=== PATIENT | male | born 1960 | race African-American/Black ===

== ENCOUNTER 2019-02-01 14:05 | Inpatient (IN) | payer OTHER ==
[~2019-02-01] VITALS: Ht 182.9 cm; Wt 83.9 kg
[2019-02-01] MEDS ORDERED: METHYLPREDNISOLONE SOD SUCC 125 MG/2 ML VIAL IV STA (14:38)
[2019-02-01] MEDS ORDERED: IPRATROPIUM BROMIDE (0.02%) 0.5MG/2.5ML NEB HHN STA (14:38)
[2019-02-01] MEDS ORDERED: ALBUTEROL (0.083%) 2.5MG/3ML NEB HHN STA (14:38)
[2019-02-01] MEDS ORDERED: ASPIRIN 81MG TABLET PO ONE (14:45)
[2019-02-01] MEDS: NITROGLYCERIN 0.4MG TABLET SL SL PRN ×2 (14:50→19:23)
[2019-02-01 15:14] LABS: BASOPHILS % 0.7 % (0.0-2.0); EOSINOPHILS % 5.2 % (0.0-5.0); HEMOGLOBIN. 14.3 g/dL (14.0-18.0); MEAN CORPUSCULAR HEMOGLOBIN 29.4 pg (28.0-32.0); MEAN CORPUSCULAR VOLUME 86.7 fL (80.0-94.0); MEAN PLATELET VOLUME 9.5 fl (7.4-10.4); MONOCYTES % 7.7 % (2.0-8.0); NEUTROPHILS % 54.4 % (40.0-76.0); PLATELET 172 x1000/uL (130-400); RED BLOOD CELL COUNT 4.85 mill/uL (4.7-6.1); RED CELL DISTRIBUTION WIDTH 13.6 % (11.6-14.6)
[2019-02-01 15:19] LABS: CHLORIDE 107 mEq/L (98-107)
[2019-02-01 15:21] LABS: INR 0.9; PARTIAL THROMBOPLASTIN TIME 24.7 sec (23.4-31.0); PROTHROMBIN TIME 9.7 sec (9.6-11.0)
[2019-02-01] MEDS ORDERED: ONDANSETRON HCL 4MG/2ML INJ IV STA (16:59)
[2019-02-01] MEDS ORDERED: MORPHINE SULFATE 4 MG/ML CPJ (NOT FOR IM USE) IV STA (16:59)
[2019-02-01 21:24] VITALS: BP 122/75
[2019-02-01] MEDS ORDERED: ALBU18HF2 IH (21:29)
[2019-02-01] MEDS ORDERED: NITR0.4T49 SL (21:29)
[2019-02-01] MEDS ORDERED: LORA10CA MT (21:29)
[2019-02-01] MEDS ORDERED: BACL-141 MT (21:29)
[2019-02-01 21:33] VITALS: BP 122/75
[2019-02-01] MEDS ORDERED: IPRATROPIUM/ALBUTEROL 0.5-3(2.5)MG/3ML NEB INH PRN (22:30)
[2019-02-01] MEDS ORDERED: CLONIDINE 0.1MG TABLET PO PRN (22:30)
[2019-02-01] MEDS ORDERED: MAGNESIUM/ALUMINUM HYDROXIDE/SIMETHICONE 30ML UDC PO PRN (22:30)
[2019-02-01] MEDS ORDERED: DIPHENHYDRAMINE 50MG/ML VIAL IV PRN (22:30)
[2019-02-01] MEDS ORDERED: GUAIFENESIN 200MG/10ML SUGAR FREE UDC PO PRN (22:30)
[2019-02-01] MEDS ORDERED: NA PHOS,M-B/NA PHOS,DI-BA ENEMA 118ML PR PRN (22:30)
[2019-02-01] MEDS ORDERED: DOCUSATE SODIUM 100MG CAPSULE PO PRN (22:30)
[2019-02-01] MEDS ORDERED: ONDANSETRON HCL 4MG/2ML INJ IV PRN (22:30)
[2019-02-01] MEDS ORDERED: LORAZEPAM 2MG/ML CPJ IV PRN (22:30)
[2019-02-01] MEDS ORDERED: ACETAMINOPHEN 325MG TABLET PO PRN (22:30)
[2019-02-01] MEDS ORDERED: MORPHINE SULFATE 2 MG/ML CPJ (NOT FOR IM USE) IV PRN (22:30)
[2019-02-01] MEDS: METHYLPREDNISOLONE SOD SUCC 125 MG/2 ML VIAL IV SCH (22:47)
[2019-02-01] MEDS: HYDROCODONE/ACETAMINOPHEN 5/325MG TABLET PO PRN (22:48)
[2019-02-02] VITALS (7 sets, daily range): BP systolic 109–141; BP diastolic 61–89
[2019-02-02 00:18] LABS: CHLORIDE 103 mEq/L (98-107)
[2019-02-02] MEDS: METHYLPREDNISOLONE SOD SUCC 125 MG/2 ML VIAL IV SCH ×2 (04:38→12:00)
[2019-02-02 06:44] LABS: HEMOGLOBIN. 14.2 g/dL (14.0-18.0); MEAN CORPUSCULAR HEMOGLOBIN 29.3 pg (28.0-32.0); MEAN PLATELET VOLUME 10.1 fl (7.4-10.4); PLATELET 164 x1000/uL (130-400); RED BLOOD CELL COUNT 4.83 mill/uL (4.7-6.1); RED CELL DISTRIBUTION WIDTH 13.3 % (11.6-14.6)
[2019-02-02 07:28] LABS: CHLORIDE 103 mEq/L (98-107)
[2019-02-02 07:35] LABS: LDL CHOLESTEROL 54 mg/dL (5-100)
[2019-02-02 07:37] LABS: HDL CHOLESTEROL 96 mg/dL (40-59)
[2019-02-02] MEDS: FUROSEMIDE 40MG/4ML VIAL IV SCH (08:26)
[2019-02-02] MEDS: ENOXAPARIN 40MG/0.4ML SYR SUBCUT SCH (08:26)
[2019-02-02] MEDS: ASPIRIN 81MG EC TABLET PO SCH (08:27)
[2019-02-02] MEDS: HYDROCODONE/ACETAMINOPHEN 5/325MG TABLET PO PRN ×2 (08:27→20:46)
[2019-02-02 11:36] LABS: T4 FREE 0.95 ng/dL (0.76-1.46)
[2019-02-02 13:00] LABS: BG BASE EXCESS -0.4 mmol/L (-2.0-2.0); BG CARBOXYHEMOGLOBIN 0.7 % (0.5-1.5); BG DEOXYHEMOGLOBIN 4.6 % (0.0-5.0); BG FRACTION INSPIRED OXYGEN 21; BG HCO3 ACT 22.9 mmol/L (22.0-26.0); BG METHEMOGLOBIN 0.3 % (0.0-1.5); BG OXYGEN SATURATION 95.4 % (92.0-98.5); BG OXYHEMOGLOBIN 94.4 % (94.0-97.0); BG PCO2 34.2 mmHg (35.0-45.0); BG PH 7.444 (7.350-7.450); BG PO2 74.3 mmHg (75.0-100.0); BG SAMPLE SITE RIGHT BRACHIAL; BG TOTAL HEMOGLOBIN 15.9 g/dL (12.0-18.0); BG VENT MODE ROOM AIR
[2019-02-02] MEDS ORDERED: ALBUTEROL (0.083%) 2.5MG/3ML NEB HHN PRN (14:00)
[2019-02-02] MEDS ORDERED: ALBUTEROL (0.5%) 2.5MG/0.5ML NEB HHN PRN (14:00)
[2019-02-02 15:25] LABS: PLATELET ESTIMATE NORMAL
[2019-02-02 15:56] LABS: CREATINE KINASE 132 IU/L (39-308)
[2019-02-02 15:57] LABS: CREATINE KINASE MB FRACTION 1.1 ng/mL (0.5-3.6)
[2019-02-02] MEDS: IPRATROPIUM/ALBUTEROL 0.5-3(2.5)MG/3ML NEB HHN SCH ×2 (17:03→20:23)
[2019-02-02] MEDS: NICOTINE 21MG PATCH TD SCH (17:03)
[2019-02-02] MEDS: METHYLPREDNISOLONE SOD SUCC 40 MG/ML VIAL IV SCH ×2 (17:04→23:42)
[2019-02-02] MEDS ORDERED: IOHEXOL-350 100 ML BOTTLE ONE (18:41)
[2019-02-02] MEDS: GUAIFENESIN 600MG ER TABLET PO SCH (20:46)
[2019-02-02] MEDS ORDERED: PROCHLORPERAZINE MALEATE 10MG TABLET PO PRN (21:45)
[2019-02-03 00:24] LABS: CREATINE KINASE 106 IU/L (39-308)
[2019-02-03 00:25] LABS: CREATINE KINASE MB FRACTION < 1.0 ng/mL (0.5-3.6)
[2019-02-03 04:00] VITALS: BP 117/72
[2019-02-03] MEDS: IPRATROPIUM/ALBUTEROL 0.5-3(2.5)MG/3ML NEB HHN SCH ×4 (04:00→11:11)
[2019-02-03] MEDS: HYDROCODONE/ACETAMINOPHEN 5/325MG TABLET PO PRN ×2 (04:05→10:41)
[2019-02-03] MEDS: METHYLPREDNISOLONE SOD SUCC 40 MG/ML VIAL IV SCH (05:03)
[2019-02-03 07:23] LABS: CREATINE KINASE MB FRACTION 1.4 ng/mL (0.5-3.6)
[2019-02-03 08:00] VITALS: BP 100/70
[2019-02-03] MEDS: FUROSEMIDE 40MG/4ML VIAL IV SCH (09:00)
[2019-02-03] MEDS: NICOTINE 21MG PATCH TD SCH (09:05)
[2019-02-03] MEDS: GUAIFENESIN 600MG ER TABLET PO SCH (09:05)
[2019-02-03] MEDS: ENOXAPARIN 40MG/0.4ML SYR SUBCUT SCH (09:05)
[2019-02-03] MEDS: ASPIRIN 81MG EC TABLET PO SCH (09:05)
[2019-02-03 11:26] VITALS: BP 100/70
== END 2019-02-03 12:00 | disposition home or self-care (01) | DRG 140 ==
LOC: ER 14:05 → EDBEDREQ 18:38 → ENRESERV 19:21 → 7WST 20:48
PROVIDERS: ADMIT Internal Medicine; ATTEND Internal Medicine
DX: J44.1 Chronic obstructive pulmonary disease with (acute) exacerbation (principal); J96.00 Acute respiratory failure, unspecified whether with hypoxia or hypercapnia; I11.0 Hypertensive heart disease with heart failure; I50.9 Heart failure, unspecified; F17.200 Nicotine dependence, unspecified, uncomplicated; M79.18 Myalgia, other site; I25.2 Old myocardial infarction
CPT/HCPCS: 36415; 36600; 71045; 71275; 73060; 80048; 80061; 82375; 82550; 82553; 82805; 83036; 83880; 84439; 84443; 84484; 85379; 93005; 93306; 93970; 94640; 94644; 96374; 99285; J1650; J1940; J2270; J2405; J2920; J2930; J7611; J7620; Q9967